=== PATIENT | female | born 1985 | race Asian ===

== ENCOUNTER → 2019-06-01 11:00 | Outpatient (CLI) | payer OTHER, MEDICAID, SELFPAY ==
[2019-06-01 12:24] LABS: Hemoglobin A1C% w Est Avg Glu 4.9 % (4.0-6.0)
[2019-06-01 12:34] LABS: Alanine Aminotransferase 13 IU/L (<35); Albumin 4.5 g/dL (3.5-5.0); Albumin Globulin Ratio 1.5 (1.0-2.8); Alkaline Phosphatase 47 U/L (38-126); Aspartate Aminotransferase 19 IU/L (14-36); Bilirubin Total 1.1 mg/dL (0.2-1.3); Blood Urea Nitrogen 14 mg/dL (7-17); Calcium 9.4 mg/dL (8.4-10.2); Carbon Dioxide 25 mmol/L (22-32); Chloride 106 mmol/L (98-107); Estimated Glomerular Filt Rate > 60.0 mL/min (>60); Globulin 3.1 g/dL (1.7-4.1); Glucose 103 mg/dL (70-100); HEMOLYSIS < 15 (0-50); Potassium 4.9 mmol/L (3.4-5.1); Sodium 140 mmol/L (137-145); Total Protein 7.6 g/dL (6.3-8.2)
== END ==
PROVIDERS: Visit Provider Family Medicine
DX: Z83.3 Family history of diabetes mellitus (principal)
CPT/HCPCS: 36415; 80053; 83036

== ENCOUNTER → 2020-05-07 11:09 | Outpatient (CLI) | payer OTHER, SELFPAY ==
--- NOTE | 2020-05-07 11:11 | DI.RAD.S_ITS ---
PROCEDURE: XR CHEST 2V INDICATIONS: Past history of positive PPD TECHNIQUE: 2 views of the chest were acquired. COMPARISON: [facility], , CHEST 2 VIEW, 04/02/2017, 10:28. FINDINGS: Surgical changes and devices: None. Lungs and pleura: Lungs are clear. No pleural effusions or pneumothorax. Mediastinum: Mediastinal contours are normal and unchanged. No adenopathy seen. Heart size is normal. Bones and chest wall: No suspicious bony abnormalities. Soft tissues appear unremarkable. IMPRESSION: No acute cardiopulmonary abnormality. Dictated by: Anjel Pan M.D. on 05/07/2020 at 11:56 Approved by: Anjel Pan M.D. on 05/07/2020 at 11:56
[2020-05-09 07:44] LABS: QuantiFERON Mitogen Value 8.05 IU/mL (.); QuantiFERON Nil Value 0.21 IU/mL (.); QuantiFERON TB Gold Plus Negative (Negative); QuantiFERON TB1 Ag Value 0.26 IU/mL (.); QuantiFERON TB2 Ag Value 0.27 IU/mL (.)
== END ==
PROVIDERS: PCP Family Medicine; Referring Provider Family Medicine; Visit Provider Family Medicine
DX: R76.11 Nonspecific reaction to tuberculin skin test without active tuberculosis (principal)
CPT/HCPCS: 36415; 71046; 86480

== ENCOUNTER → 2021-05-03 08:22 | Outpatient (CLI) | payer OTHER, SELFPAY ==
[2021-05-03 09:31] LABS: Add Manual Diff / Slide Review NO; Basophils Absolute Auto 100 /uL (0-100); Basophils Percent Auto 1.1 % (0-2); Eosinophils Absolute Auto 200 /uL (0-450); Eosinophils Percent Auto 2.3 % (2-4); Hematocrit 41.3 % (36-46); Hemoglobin 14.1 g/dL (12.0-16.0); Lymphocytes Absolute Auto 2700 /uL (1100-4500); Lymphocytes Percent Auto 36.4 % (25-40); Mean Corpuscular HGB Conc 34.2 % (30-36); Mean Corpuscular Hemoglobin 30.8 PG (26-34); Mean Corpuscular Volume 90.1 fL (80-100); Monocytes Absolute Auto 500 /uL (0-900); Monocytes Percent Auto 6.9 % (3-14); Neutrophils Absolute Auto 4000 /uL (1500-7000); Neutrophils Percent Auto 53.3 % (50-75); Platelet Count 271 X10^3/uL (150-400); Red Blood Cell Count 4.59 X10^6/uL (4.0-5.2); Red Cell Distribution Width 12.8 % (11.6-14.8); White Blood Cell Count 7.5 X10^3/uL (4.5-11.0)
[2021-05-03 10:05] LABS: Alanine Aminotransferase 17 IU/L (<35); Albumin 4.5 g/dL (3.5-5.0); Albumin Globulin Ratio 1.3 (1.0-2.8); Alkaline Phosphatase 38 U/L (38-126); Aspartate Aminotransferase 22 IU/L (14-36); BUN Creatinine Ratio 22.4 (6-22); Bilirubin Total 0.6 mg/dL (0.2-1.3); Blood Urea Nitrogen 19 mg/dL (7-17); Calcium 10.2 mg/dL (8.4-10.2); Carbon Dioxide 28 mmol/L (22-32); Chloride 103 mmol/L (98-107); Estimated Glomerular Filt Rate > 60.0 mL/min (>60); Globulin 3.5 g/dL (1.7-4.1); Glucose 104 mg/dL (70-100); HEMOLYSIS < 15 (0-50); Lipase 123 U/L (23-300); Potassium 4.4 mmol/L (3.4-5.1); Sodium 139 mmol/L (137-145)
[2021-05-06 16:52] LABS: Interpretation Positive (Negative)
== END ==
PROVIDERS: PCP Family Medicine; Referring Provider Registered Nurse; Visit Provider Registered Nurse
DX: R10.9 Unspecified abdominal pain (principal); R14.0 Abdominal distension (gaseous); K92.1 Melena
CPT/HCPCS: 36415; 80053; 83013; 83690; 85025

== ENCOUNTER → 2021-09-25 12:17 | Outpatient (CLI) | payer OTHER, SELFPAY | PROVIDERS: PCP Family Medicine; Visit Provider Nurse Practitioner | DX: N64.52 Nipple discharge (principal) | CPT/HCPCS: 87070; 87075; 87147; 87205 ==

== ENCOUNTER → 2022-06-05 14:13 | Outpatient (CLI) | payer OTHER, SELFPAY ==
[2022-06-05 16:14] LABS: COVID19 -Nasal RAPID Negative (Negative)
== END ==
PROVIDERS: PCP Family Medicine; Visit Provider Obstetrics & Gynecology
DX: Z01.812 Encounter for preprocedural laboratory examination (principal); Z20.822 Contact with and (suspected) exposure to COVID-19
CPT/HCPCS: 87635

== ENCOUNTER 2022-06-06 08:40 | Day surgery (SDC) | payer OTHER, SELFPAY ==
[2022-06-05 14:45] VITALS: BMI 31.9
[2022-06-06] VITALS (8 sets, daily range): BP systolic 103–144; BP diastolic 66–91; PULSE 72–116; RESP 10–20; TEMP 36.4–37; O2SAT 98–100; BMI 31.2
--- NOTE | 2022-06-06 | PATH_ITS ---
[facility] Accession Number: [id number] . 01 Material submitted: . body - LEEP CONE . 01 Clinical history: . LEEP CONE CUT AT 0900 . 01 Diagnosis: Uterine Cervix, LEEP Conization: High-grade squamous intraepithelial lesion (LAYLA-2/moderate dysplasia) in a background of low-grade squamous intraepithelial lesion and prior biopsy changes. Negative for glandular dysplasia and invasive carcinoma. Surgical margins: Negative for high-grade squamous intraepithelial lesion. MRV 06/10/2022 1306 Local . 01 Electronically signed: . Scar Cook MD, Pathologist NPI- [id number] . 01 Gross description: . The specimen is received in formalin, labeled with the patient's name, , and LEEP cone cut at 9 o'clock, and consists of a single linear fragment of cervix with a cut at 9 o'clock per the requisition and measuring 1.8 cm from 12 o'clock to 6 o'clock, 2.5 cm from 3 o'clock to 9 o'clock, and is excised to a depth of 0.4 cm. The cervical os is re-approximated to be slit-like and averages 0.4 cm in diameter. The ectocervix is rosario and finely granular. The endocervical margin is inked orange while the remaining stromal margins are inked blue. The specimen is radially sectioned and submitted entirely as follows: A1: 12-3 o'clock. A2: 3-6 o'clock. A3: 6-9 o'clock. A4: 9-12 o'clock. ([id number]) /[place] 06/10/2022 1306 Local . 01 Pathologist provided ICD-10: R87.613 . 01 CPT . 124644 Specimen Comment: A courtesy copy of this report has been sent to [phone] Performed at: 01 [facility] [address] [place] [address], [place], [place] [id number] MD Satya Renee MD Phone: [phone]
[2022-06-06] MEDS: LACTATED RINGERS 1,000 ML 42 ML IV (09:10)
--- NOTE | 2022-06-06 09:32 | P.HPOB_ITS ---
History of Present Illness History of Present Illness Narrative: Priscilla Piña is a 36 year old female admitted for LEEP due to HGSIL of the cervix noted on Pap and confirmed with colpo-directed biopsy 02/25/2022. [facility] Medical History (Updated 02/25/22 @ 13:22 by Alexandre Turner MD) Abdominal pain Bloating symptom Bloody stools Chlamydia (~2017) Family History Grandmother Cancer Social History household members: spouse and children Smoking Status: Former smoker alcohol intake: current Meds Home Medications and Allergies Home Medications Medication Instructions Recorded Confirmed Type No Known Home Medications 02/25/22 06/06/22 History Allergies Allergy/AdvReac Type Severity Reaction Status Date / Time No Known Drug Allergies Allergy Verified 06/06/22 08:49 Review of Systems Review of Systems Narrative: Problem-specific ROS positives included in HPI Exam Vital Signs (past 8 hours): - 06/06/22 09:07 Temperature 98.3 F Pulse Rate 116 H Respiratory Rate 20 Blood Pressure 144/91 H Pulse Oximetry 100 Oxygen Delivery Method Room Air Oxygen Delivery Method Room Air Const General: cooperative and comfortable Nutritional Appearance: average body habitus Orientation: alert and oriented x3 HENMT Head: normal to inspection, atraumatic and abrasion Ears: hearing grossly normal bilaterally Face and sinus: face symmetric Eyes General: appearance normal, both eyes and all related structures Conjunctivae: conjunctivae normal Sclera: sclerae normal EOM: EOM intact bilaterally Neck Neck: normal visual inspection Resp Effort & Inspection: normal respiratory effort and able to speak in complete sentences Auscultation: clear to auscultation bilaterally Cardio Rate: regular rate Rhythm: regular rhythm Heart Sounds: S1 normal, S2 normal and no murmurs GI Inspection: normal to inspection Palpation: soft, no hepatosplenomegaly and No tender External Female Exam: other (No significant bleeding noted) Extrem General: no calf tenderness Psych Appearance: grossly normal Mental Status: mental status grossly normal Speech and Movement: speech and movement normal Mood: congruent mood Affect: normal affect Attitude: cooperative Thought Process: normal Thought Content: normal Judgment: judgment good Assessment & Plan Assessment and plan (1) HGSIL (high grade squamous intraepithelial lesion) on Pap smear of cervix: Status: Acute Plan Patient counselled re: alternatives, risks, benefits and potential complications associated with LEEP. With full understanding of the above, a written consent was executed, signed, and witnessed this date. Time Spent With Patient Time with patient: less than 30 minutes Critical Care time: I spent a total of [] minutes of critical care time on this patient's care today; this time is exclusive of procedural time.
--- NOTE | 2022-06-06 09:36 | PM.PREOP ---
Pre-operative Note COVID-19 COVID-19 status: Negative Result date/Date tested (Pos, Neg/Pending): 06/05/22 Criteria for continued procedure: Non-surgical alternatives not available or appropriate per current SOC Interval Note History & Physical reviewed/Exam performed by Physician: Yes Changes to H&P: No
--- NOTE | 2022-06-06 09:51 | P.OP_ITS ---
Operative Date/Time/Diagnoses Date of procedure: 06/06/22 Time of procedure: 09:50 Pre-op diagnosis: High-grade squamous dysplasia of the uterine cervix Post-op diagnosis: same Procedure & Clinicians Procedure: Procedures Operation Date: 06/06/22 09:45 Loop electrosurgical excision procedure (LEEP) Indications: Priscilla Piña is a 36 year old female admitted for LEEP due to HGSIL of the cervix noted on Pap and confirmed with colpo-directed biopsy 02/25/2022. Surgeon: Alexandre Turner Anesthesia Type: General Operative Notes Closure Type: not applicable Specimen(s): other (LEEP Cone) Blood products transfused: none Procedure in detail: With the patient under satisfactory general anesthesia in the modified dorsal lithotomy position, the perineum and lower abdomen were prepped and draped in the usual manner for LEEP. A pre-surgical safety time-out was then taken in accordance with [facility] Main OR protocols. An insulated speculum was placed in the vagina and the cervix visualized. The cervix was immersed in vinegar solution and carefully inspected for areas of aceto-white epithelium. With a 10 mm x 15 mm loop electrode, 50 w pure cut, the entire transformation zone and aceto-white epithelium was removed. LEEP cone specimen cut at 9:00 was submitted in formalin pathologic evaluation. The LEEP cone bed was then rendered hemostatic with 60 w coag. At the end of the procedure the entire LEEP cone bed was completely hemostatic and the procedure was terminated by removal of the speculum from the vagina. Patient was then awakened from anesthesia and transferred to the PACU for of observation recovery after having tolerated procedure well. Complications: none Post-operative Condition: stable Disposition: PACU Plan for aftercare: Routine post-LEEP care.
[2022-06-06] MEDS: ACETIC ACID 500 ML IRRIG 20 ML TOP (10:00)
--- NOTE | 2022-06-06 10:10 | SUR.OPER ---
Lithotomy on padded OR bed, head on pillow, arms secured on padded arm boards at <90 degrees abduction. Legs secured in padded yellow fins stirrups.
== END 2022-06-06 11:14 | disposition home or self-care (01) ==
PROVIDERS: PCP Family Medicine; Referring Provider Obstetrics & Gynecology; Visit Provider Obstetrics & Gynecology
PROC: 0UBC7ZZ Excision of Cervix, Via Natural or Artificial Opening (ICD-10-PCS; CPT 57522; principal; 2022-06-06 09:45)
DX: R87.613 High grade squamous intraepithelial lesion on cytologic smear of cervix (HGSIL) (principal)
CPT/HCPCS: 57522; 81025; J1100; J1885; J2250; J2405; J2704; J3010

== ENCOUNTER → 2023-01-13 17:01 | Outpatient (CLI) | payer OTHER, SELFPAY ==
[2023-01-13 19:46] LABS: HCG Quantitative /Beta subunit 1625.2 mIU/mL
== END ==
PROVIDERS: PCP Family Medicine; Referring Provider Specialist; Visit Provider Specialist
DX: O20.0 Threatened abortion (principal)
CPT/HCPCS: 36415; 84702

== ENCOUNTER → 2023-01-16 09:24 | Outpatient (CLI) | payer OTHER, SELFPAY ==
[2023-01-16 11:00] LABS: HCG Quantitative /Beta subunit 33.5 mIU/mL
== END ==
PROVIDERS: PCP Family Medicine; Referring Provider Specialist; Visit Provider Specialist
DX: O20.0 Threatened abortion (principal); Z3A.00 Weeks of gestation of pregnancy not specified
CPT/HCPCS: 36415; 84702

== ENCOUNTER → 2023-05-07 14:54 | Outpatient (CLI) | payer OTHER, SELFPAY | PROVIDERS: PCP Family Medicine; Visit Provider Nurse Practitioner Family | DX: J02.9 Acute pharyngitis, unspecified (principal) | CPT/HCPCS: 87070; 87147 ==

== ENCOUNTER → 2023-07-03 09:04 | Outpatient (CLI) | payer OTHER, SELFPAY ==
[2023-07-03 10:50] LABS: Add Manual Diff / Slide Review NO; Basophils Absolute Auto 100 /uL (0-100); Basophils Percent Auto 0.9 % (0-2); Eosinophils Absolute Auto 100 /uL (0-450); Eosinophils Percent Auto 1.2 % (2-4); Hematocrit 38.8 % (36-46); Hemoglobin 13.2 g/dL (12.0-16.0); Lymphocytes Absolute Auto 2400 /uL (1100-4500); Lymphocytes Percent Auto 24.6 % (25-40); Mean Corpuscular HGB Conc 33.9 % (30-36); Mean Corpuscular Volume 88.6 fL (80-100); Monocytes Absolute Auto 400 /uL (0-900); Monocytes Percent Auto 4.7 % (3-14); Neutrophils Absolute Auto 6600 /uL (1500-7000); Neutrophils Percent Auto 68.6 % (50-75); Platelet Count 267 X10^3/uL (150-400); Red Blood Cell Count 4.38 X10^6/uL (4.0-5.2); Red Cell Distribution Width 12.6 % (11.6-14.8); White Blood Cell Count 9.6 X10^3/uL (4.5-11.0)
[2023-07-03 11:07] LABS: Alanine Aminotransferase 34 IU/L (<35); BUN Creatinine Ratio 17.3 (6-22); Blood Urea Nitrogen 9 mg/dL (7-17); Estimated Glomerular Filt Rate > 60 mL/min (>60); Uric Acid 3.7 mg/dL (2.5-6.2)
[2023-07-03 11:37] LABS: Hepatitis B Surface Antigen NEGATIVE s/c (NEGATIVE); Rubella Antibody IgG 31.6 IU/mL (>15)
[2023-07-03 11:48] LABS: HIV 1 & 2 Ab/Ag 4th Gen Combo NEGATIVE (NEGATIVE)
[2023-07-03 15:17] LABS: Aspartate Aminotransferase 28 IU/L (14-36)
[2023-07-03 18:16] LABS: Hep C Virus Ab w/Reflex Quant NEGATIVE s/c (NEGATIVE)
[2023-07-04 12:48] LABS: Varicella IgG Antibody 3328 index (Immune >165)
[2023-07-06 08:16] LABS: RPR Screen Non Reactive (Non Reactive)
== END ==
LOC: LAB 09:05
PROVIDERS: PCP Family Medicine; Referring Provider Student in an Organized Health Care Education/Training Program; Visit Provider Student in an Organized Health Care Education/Training Program
DX: Z34.80 Encounter for supervision of other normal pregnancy, unspecified trimester (principal); Z87.59 Personal history of other complications of pregnancy, childbirth and the puerperium
CPT/HCPCS: 36415; 80055; 82565; 83036; 84450; 84460; 84520; 84550; 86787; 86803; 86850; 86900; 86901; 87086; 87389

== ENCOUNTER → 2023-07-29 09:27 | Outpatient (CLI) | payer OTHER, SELFPAY ==
--- NOTE | 2023-07-29 10:31 | DIAB.GDA ---
Initial Gestational Nutrition Therapy Assessment Name: Priscilla Piña Date: 07/29/23 Time: [id number] Dx: Encounter for supervision of other normal , unspecified Provider: Cherie DESIRAE: 01/09/24 Weeks: 16 Priscilla presents today for initial nutrition visit. Reports she is quite worried about GDM diagnosis. Reports coming into this 20# heavier than last 6 years ago. Also, reports FH of T2DM with her mother. Today she would like to review nutrition recs, she is wondering if she needs to kcal count, and wants to know what her weight goals should be, more specifically if she can lose weight during this healthily. has questions about how she will know if she has high BG, ie testing and symptoms H/o keto diet. Hx with net carb counting. Works at a [employer]. Limited break time at work for lunch. Often eats out at lunch. Started pg at 193# lost weight (6#) with cutting out coffee and creamers during . Then regain back to 193#. Diet Recall: 845a: egg bites OR egg white sandwich OR ww thin bread with cottage cheese and eggs 1030a: nuts or apples 12p: subway flatbread chx carpenter OR French food with chx, white rice x 1c, and veg 630p: sausage and veg, 1c white rice OR tacos x 1-2 with 1/3c beans and 1/3c rice Ileana: Water Anthropometrics: Ht: 64 Wt: 193# today at OB Prepregnancy wt: 193# Physical Activity: No current program. Was walking 30 min x 3-4 x per week. Self-Monitoring Blood Glucose: None currently and not indicated. Diabetes Medications: none Pertinent Labs: hgA1c 5% 06/2023 Nutrition Rx: Carbohydrates: Daily: 175g Meal: 45-g lunch and dinner; 30-45g breakfast Snack: 15-30g Protein: min 71g/day Nutrition Diagnosis: Nutrition and food related knowledge deficit r/t no previous MNT for DM prevention aeb pt report Physical inactivity r/t stage of change preparation aeb pt report of willingness to restart activity Intervention: This participant was very receptive. Provided appropriate educational handouts. Discussed the following topics: GDM pathophysiology, risk factors, symptoms, screenings Ways to reduce risk GDM Plate Method, meal timing, carb counting, pairing macronutrients and spreading out CHO for best BG management Impact of macronutrients on blood glucose Recommended servings for carbohydrates and protein at meals and snacks for Brainstormed appropriate meal/snack recs based on her food preferences kcal counting vs plate method Eating out: carbs, sodium, kcals weight gain recs during based on prepreg wt. Discouraged purposeful weight loss during Role of physical activity and following provider guidelines for safety Goals: Restart 30 min walks 3-4 days per week Aim for at least 10 min activity after meal on other days Measure rice portion for reference Choose higher fiber options, ie brown rice Try to eat q 3-4 hours Follow-up: DANIELLA CID follow-up prn. Priscilla would like to follow-up prn. Encouraged her to contact me if she has further questions, concerns, or change in diagnosis regarding GDM. She agreed to this plan. Tiffanie Lal RDN, [facility] Certified Diabetes Care and Loss Prevention Guard T: [phone] F: [phone] [email or web address] Thank you for this referral
[2023-08-01 00:49] LABS: Gest Age on Col Date 16.6 weeks (.); Insulin Dep Diabetes No (.); OSBR Risk 1IN 2457 (.); Results Report (.); Test Results *Screen Negative* (.)
== END ==
PROVIDERS: PCP Family Medicine; Referring Provider Student in an Organized Health Care Education/Training Program; Visit Provider Student in an Organized Health Care Education/Training Program
DX: Z34.82 Encounter for supervision of other normal pregnancy, second trimester (principal); Z3A.16 16 weeks gestation of pregnancy
CPT/HCPCS: 36415; 82105; 97802

== ENCOUNTER → 2023-08-26 11:53 | Outpatient (CLI) | payer OTHER, SELFPAY ==
--- NOTE | 2023-08-26 11:54 | DI.US.S_ITS ---
PROCEDURE: US OB >= 14 WEEKS FETUS INDICATIONS: 20 week anatomy scan OUTSIDE/PRIOR DATING DATA: Last menstrual period (LMP): 04/03/2023. LMP-based estimated date of delivery (DESIRAE): 01/09/2024. First dating scan (date and location): 07/13/2023. Estimated date of delivery (DESIRAE) from first dating scan: 01/10/2024. The calculations are made using the clinical DESIRAE of 01/09/2024. TECHNIQUE: Real-time scanning was performed of the fetus, with image documentation and biometric measurements. COMPARISON: [facility], , OB <= 14 WEEKS FETUS, 07/03/2023, 8:50. FINDINGS: General: A single living intrauterine gestation is present. Presentation: Vertex. Placenta: Placental position is posterior , without previa. Amniotic fluid index: 13.7 cm, normal range is 5-24 cm. Single deepest vertical pocket is 4.6 cm. heart rate: 145 beats per minute. Maternal cervical canal: 4.7 cm long. Normal lower limit is 2.5 cm. biometrics: Biparietal diameter: 4.8 cm 20 weeks 4 days Head circumference: 18.6 cm 20 weeks 6 days Abdominal circumference: 15.4 cm 20 weeks 4 days Femur length: 3.4 cm 20 weeks 5 days Clinically estimated gestational age: 20 weeks 4 days Composite gestational age from present scan: 20 weeks 5 days Estimated weight and percentile: 368 g 50th percentile Anatomic survey: Neuro: Ventricles are non-dilated at less than 10 mm. Cisterna magna is normal at 3-11 mm. Cerebellum is normal in size and morphology. Nuchal skin fold: Normal at less than 6 mm between 14-21 weeks gestational age. Face: Nose and lips, facial profile are normal. Spine: No evidence for spina bifida. Heart: 4-chambered heart is present, with normal ventricular outflow tracts. Diaphragm: Diaphragm is intact. Stomach: Left-sided stomach is present. Kidneys: No hydronephrosis. Normal is less than 5 mm in 2nd trimester, less than 7 mm in 3rd trimester. Cord: 3-vessel cord has orthotopic insertion. Bladder: Normal in size. Extremities: All 4 extremities identified. IMPRESSION: Single live intrauterine with gestational age today of 20 weeks 5 days. Anatomy is within normal limits. We strive to produce accurate, complete, and clear reports of imaging services. To assist us in improving patient care, this report was composed using standard report templates and voice recognition software. Therefore, it may contain abnormal punctuation, insertions and/or omissions. Occasional wrong-word or sound-alike substitutions may occur. Though we review the report and make efforts to correct it, we do recommend that the report be read carefully in proper context to recognize any text inaccuracies. Dictated by: Paradise Lux M.D. on 08/26/2023 at 14:18 Approved by: Paradise Lux M.D. on 08/26/2023 at 14:19
== END ==
PROVIDERS: PCP Family Medicine; Referring Provider Student in an Organized Health Care Education/Training Program; Visit Provider Student in an Organized Health Care Education/Training Program
DX: Z34.82 Encounter for supervision of other normal pregnancy, second trimester (principal); Z3A.20 20 weeks gestation of pregnancy
CPT/HCPCS: 76811

== ENCOUNTER → 2023-10-14 14:16 | Outpatient (CLI) | payer OTHER, SELFPAY ==
[2023-10-14 15:59] LABS: Hemoglobin 12.2 g/dL (12.0-16.0)
[2023-10-14 16:27] LABS: GTT (PREG) 1 Hour PP 50gm Dose 128 mg/dL (76-139)
== END ==
PROVIDERS: PCP Family Medicine; Referring Provider Student in an Organized Health Care Education/Training Program; Visit Provider Student in an Organized Health Care Education/Training Program
DX: Z34.82 Encounter for supervision of other normal pregnancy, second trimester (principal)
CPT/HCPCS: 36415; 82950; 85014; 85018

== ENCOUNTER → 2023-11-02 15:49 | Outpatient (CLI) | payer OTHER, SELFPAY ==
--- NOTE | 2023-11-02 15:49 | DI.US.S_ITS ---
PROCEDURE: US OB <= 14 WEEKS FETUS INDICATIONS: dating and viability, irregular menses OUTSIDE/PRIOR DATING DATA: Last menstrual period (LMP): 04/03/2023. LMP-based estimated date of delivery (DESIRAE): 01/09/2024. First dating scan (date and location): 07/03/2023. Estimated date of delivery (DESIRAE) from first dating scan: 01/10/2024. The calculations are made using the clinical DESIRAE of 01/09/2024. TECHNIQUE: Real-time scanning was performed of the fetus, with image documentation and biometric measurements. Endovaginal scanning: Not performed COMPARISON: [facility], , OB <= 14 WEEKS FETUS, 07/03/2023, 8:50. FINDINGS: General: A single living intrauterine gestation is present. Presentation: Vertex. Placenta: Placental position is posterior , without previa. Amniotic fluid index: 10.5 cm, normal range is 5-24 cm. Single deepest vertical pocket is 3.4 cm. heart rate: 149 beats per minute. Maternal cervical canal: 4.6 cm long. Normal lower limit is 2.5 cm. biometrics: Biparietal diameter: 7.5 cm, 30 weeks 1 day Head circumference: 28 cm, 30 weeks 5 days Abdominal circumference: 27.1 cm, 31 weeks 2 days Femur length: 5.9 cm, 30 weeks 5 days Clinically estimated gestational age: 30 weeks 2 days Composite gestational age from present scan: 30 weeks 5 days Estimated weight and percentile: 1661 g, 59th percentile IMPRESSION: Single living intrauterine at 30 weeks 2 days, DESIRAE of 01/09/2024. Estimated weight of 1661 g, 59th percentile. We strive to produce accurate, complete, and clear reports of imaging services. To assist us in improving patient care, this report was composed using standard report templates and voice recognition software. Therefore, it may contain abnormal punctuation, insertions and/or omissions. Occasional wrong-word or sound-alike substitutions may occur. Though we review the report and make efforts to correct it, we do recommend that the report be read carefully in proper context to recognize any text inaccuracies. Dictated by: Quintin Gordon M.D. on 11/02/2023 at 16:46 Approved by: Quintin Gordon M.D. on 11/02/2023 at 16:48
== END ==
LOC: US 15:49
PROVIDERS: PCP Family Medicine; Referring Provider Student in an Organized Health Care Education/Training Program; Visit Provider Student in an Organized Health Care Education/Training Program
DX: Z34.80 Encounter for supervision of other normal pregnancy, unspecified trimester (principal); Z3A.30 30 weeks gestation of pregnancy
CPT/HCPCS: 76801

== ENCOUNTER → 2023-12-07 09:29 | Outpatient (CLI) | payer OTHER, SELFPAY ==
[2023-12-08 13:44] LABS: Strep Grp B PCR NEG for Grp B Strep
== END ==
PROVIDERS: PCP Family Medicine; Visit Provider Student in an Organized Health Care Education/Training Program
DX: Z34.83 Encounter for supervision of other normal pregnancy, third trimester (principal); Z3A.36 36 weeks gestation of pregnancy
CPT/HCPCS: 87653

== ENCOUNTER 2023-12-18 13:52 | Observation (INO) | payer OTHER, SELFPAY ==
[2023-12-18 14:31] LABS: Add Manual Diff / Slide Review NO; Basophils Absolute Auto 100 /uL (0-100); Basophils Percent Auto 0.9 % (0-2); Eosinophils Absolute Auto 200 /uL (0-450); Eosinophils Percent Auto 2.3 % (2-4); Hematocrit 35.6 % (36-46); Hemoglobin 12.3 g/dL (12.0-16.0); Lymphocytes Absolute Auto 2700 /uL (1100-4500); Lymphocytes Percent Auto 25.2 % (25-40); Mean Corpuscular HGB Conc 34.6 % (30-36); Mean Corpuscular Hemoglobin 31.1 PG (26-34); Monocytes Absolute Auto 1000 /uL (0-900); Monocytes Percent Auto 9.7 % (3-14); Neutrophils Absolute Auto 6700 /uL (1500-7000); Neutrophils Percent Auto 61.9 % (50-75); Platelet Count 242 X10^3/uL (150-400); Red Blood Cell Count 3.96 X10^6/uL (4.0-5.2); Red Cell Distribution Width 13.8 % (11.6-14.8); White Blood Cell Count 10.8 X10^3/uL (4.5-11.0)
[2023-12-18 14:42] LABS: Aspartate Aminotransferase 22 IU/L (14-36); BUN Creatinine Ratio 22.7 (6-22); Blood Urea Nitrogen 10 mg/dL (7-17); Estimated Glomerular Filt Rate > 60 mL/min (>60); Uric Acid 3.1 mg/dL (2.5-6.2); Uric Acid 3.2 mg/dL (2.5-6.2)
[2023-12-18 16:42] LABS: Creatinine Urine Random 48.46 mg/dL; Protein (Total) Urine Random 8 mg/dL (0-12); Protein Creatinine Ratio Urine 0.16 GRAM/24H
--- NOTE | 2023-12-18 17:44 | P.TNLD_ITS ---
Visit Information Visit Information Date of evaluation: 12/18/23 Primary OB Provider: Nata Crespo On-call OB Provider: Marie Kothari Reason for Evaluation: Yes non-stress test Comments/Additional reasons for admission: 38 yo with history of gestational hypertension in prior , obesity in , AMA who was sent from clinic at 36w6d due to outpatient blood pressure reading of 146/83 wtih her home cuff. She called in to triage and was counseled to come to labor and delivery. Patient's blood pressures have been within normal other than 1 OB appointment where blood pressure was 132/82 on December 06. She did have a mild headache this morning but this has since resolved without treatment. Otherwise no preeclampsia symptoms. No contractions. Vital Signs Vital Signs: Blood pressure on arrival 128/70, 119/56 HR- 126 --> 116 temp- 36.5C PFSH Medical History (Updated 11/17/23 @ 08:32 by Nata Crespo DO) Migraine without aura HGSIL (high grade squamous intraepithelial lesion) on Pap smear of cervix Discharge from nipple Bloating symptom Bloody stools Abdominal pain Vaginal delivery Chlamydia (~2016) Surgical History (Updated 06/25/23 @ 15:42 by Ashley Oro, GABBY) [place] teeth extracted H/O LEEP Family History (Updated 06/25/23 @ 15:45 by Ashley Oro, GABBY) Grandmother Cancer Breast cancer Mother Diabetes mellitus Hypertension Asthma Heart disease Father Prostatitis Social History marital status: number of children: 1 household members: spouse and children lives independently: Yes caregiver/support person: Yes housing: house pets and animals: Yes (1 dog) education level: college (some college) 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 status: employed (works in a [employer]) current 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 exposures/hazards: No special garrett needs: No travel history: over 6 months ago seatbelt use: always water heater temp set < 120 deg: Yes working smoke detector in home: Yes fire extinguisher in home: Yes carbon monox detector in home: Yes firearms in home: Yes firearms unloaded and locked: Yes do you feel safe at home: Yes Smoking Status: Former smoker (quit 2016 after ~8 years on and off) second hand exposure: No alcohol intake: former (0-5/week when not ) substance use type: does not use during the past year weight has: increased > 10 lbs well-balanced diet: daily or most days daily servings fruits/ve-4 caffeine: No (quit due to ) Type(s) of exercise: none and aerobic frequency: 3-4 times per week Review of Systems Review of Systems Narrative: - TOUSSAINT - scatoma/vision changes - RUQ pain - edema - Nausea/vomiting - Contractions Exam Narrative Exam Narrative: GEN: Healthy appearing, well-developed, NAD. PSYCH: Good Judgment. AOx3. Normal memory, mood, and affect HEENT: -Head: NC/AT -Eyes: No discharge or redness CV: warm and well perfused LUNGS: breathing comfortably on RA ABD: gravid SKIN: Warm, well perfused. No skin rashes or abnormal lesions MSK: Normal gait. No deformities NEURO: Ambulating with no limitations. No focal deficits Objective Labs 12/18/23 14:20 12/18/23 14:20 Labs: Laboratory Results - last 24 hr 12/18/23 12/18/23 12/18/23 14:20 14:20 15:30 WBC 10.8 RBC 3.96 L Hgb 12.3 Hct 35.6 L MCV 90.0 MCH 31.1 MCHC 34.6 RDW 13.8 Plt Count 242 Neut % (Auto) 61.9 Lymph % (Auto) 25.2 Edmonson % (Auto) 9.7 Eos % (Auto) 2.3 Baso % (Auto) 0.9 Neut # (Auto) 6700 Lymph # (Auto) 2700 Edmonson # (Auto) 1000 H Eos # (Auto) 200 Baso # (Auto) 100 BUN 10 Creatinine 0.44 L Estimated GFR > 60 BUN/Creatinine Ratio 22.7 H Uric Acid 3.1 3.2 AST 22 U Random Total Protein 8 Urine Creatinine 48.46 Protein/Creatinin Ratio 0.16 Evaluation Evaluation Baseline heart rate: 150 Variability: Moderate (11-25) monitor accelerations: Present Monitor Decelerations: Absent Contraction Frequency (minutes): 0 Category of Tracing: Reactive Status: Category l Diagnosis, Plan/Disposition Plan/Disposition Plan: 38 yo with history of gestational hypertension in prior , obesity in , AMA who was sent from clinic at 36w6d due to outpatient blood pressure reading of 146/83 with her home cuff (automatic arm cuff). CBC shows normal platelets, creatinine of 0.44, AST 22, urine protein creatinine of 016. Blood pressure is while on labor and delivery all within normal limits. Headache has resolved without treatment. Feel tracing category 1 and reassuring. No contractions noted on toco. Patient has follow-up scheduled early next week with her primary OB. Recommend continuing with follow-up. Reviewed preeclampsia symptoms and what to do if they arise. If any arise, recommend proceeding to L and D for evaluation and monitoring. In the meantime continue to trend blood pressures home. Recommend bringing blood pressure cuff to her next visit as to be able to calibrate with clinic cuff. OB Disposition: home
== END 2023-12-18 17:30 | disposition home or self-care (01) ==
LOC: LABOR 13:53
PROVIDERS: Obstetrics & Gynecology; Admitting Provider Student in an Organized Health Care Education/Training Program; PCP Family Medicine; Referring Provider Student in an Organized Health Care Education/Training Program; Visit Provider Student in an Organized Health Care Education/Training Program
DX: O16.3 Unspecified maternal hypertension, third trimester (principal); O09.523 Supervision of elderly multigravida, third trimester; Z3A.36 36 weeks gestation of pregnancy
CPT/HCPCS: 59025; 59050; 82570; 84156; 84450; 84550; 85025; G0378; G0379

== ENCOUNTER 2024-01-04 13:47 | Outpatient (CLI) | payer OTHER, SELFPAY ==
--- NOTE | 2024-01-04 14:31 | P.TNLD_ITS ---
Visit Information Visit Information Date of evaluation: 01/04/24 Primary OB Provider: Nata Crespo Reason for Evaluation: Yes non-stress test Vital Signs Vital Signs: BP 137/90, repeat 112/59 PFS Medical History (Updated 11/17/23 @ 08:32 by Nata Crespo DO) Migraine without aura HGSIL (high grade squamous intraepithelial lesion) on Pap smear of cervix Discharge from nipple Bloating symptom Bloody stools Abdominal pain Vaginal delivery Chlamydia (~2017) Surgical History (Updated 06/25/23 @ 15:42 by Ashley Oro RN) [place] teeth extracted H/O LEEP Family History (Updated 06/25/23 @ 15:45 by Ashley Oro RN) Grandmother Cancer Breast cancer Mother Diabetes mellitus Hypertension Asthma Heart disease Father Prostatitis Social History marital status: number of children: 1 household members: spouse and children lives independently: Yes caregiver/support person: Yes housing: house pets and animals: Yes (1 dog) education level: college (some college) 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 status: employed (works in a [employer]) current 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 exposures/hazards: No special garrett needs: No travel history: over 6 months ago seatbelt use: always water heater temp set < 120 deg: Yes working smoke detector in home: Yes fire extinguisher in home: Yes carbon monox detector in home: Yes firearms in home: Yes firearms unloaded and locked: Yes do you feel safe at home: Yes Smoking Status: Former smoker (quit 2016 after ~8 years on and off) second hand exposure: No alcohol intake: former (0-5/week when not ) substance use type: does not use during the past year weight has: increased > 10 lbs well-balanced diet: daily or most days daily servings fruits/ve-4 caffeine: No (quit due to ) Type(s) of exercise: none and aerobic frequency: 3-4 times per week Evaluation Evaluation Baseline heart rate: 150 Variability: Moderate (11-25) monitor accelerations: Present Monitor Decelerations: Absent Category of Tracing: Reactive Diagnosis, Plan/Disposition Final Diagnosis (1) History of induced hypertension: Status: Acute Plan/Disposition Plan: 38yo at 39+2wks presenting for NST/BP check due to delay of IOL and hx of HTN in prior . At this point, pt has not met criteria for gHTN in this , with all documented blood pressures within normal range except for her first BP today in triage. She denied any pre-e symptoms to nursing staff today. Reactive NST noted on external monitoring today. -due to lack of sufficient staffing, her IOL has been delayed from today until later this week -pt aware of pre-e symptoms and reasons to return to care sooner -will hopefully get pt in for IOL later this week, or sooner if she rules in for gHTN or pre-e OB Disposition: home
== END 2024-01-04 14:38 | disposition home or self-care (01) ==
LOC: LABOR 14:14 → OB 01-07 12:17
PROVIDERS: PCP Family Medicine; Referring Provider Student in an Organized Health Care Education/Training Program; Visit Provider Student in an Organized Health Care Education/Training Program
DX: O26.893 Other specified pregnancy related conditions, third trimester (principal); Z87.59 Personal history of other complications of pregnancy, childbirth and the puerperium; Z3A.39 39 weeks gestation of pregnancy
CPT/HCPCS: 59025; G0378; G0379

== ENCOUNTER 2024-01-05 16:41 | Inpatient (IN) | payer OTHER, SELFPAY ==
[2024-01-05] MEDS: miSOPROStoL 25 MCG TABLET VAG ×2 (17:11→22:09)
--- NOTE | 2024-01-05 17:20 | PM.OBHP.1 ---
OB HPI Date/Time Date of admission: 01/05/24 Date Patient Seen: 01/05/24 Time Patient Seen: 17:20 History of Present Condition Chief complaint: observation of labor : 3 Para: 1 Estimated Date of Delivery: 01/09/24 Estimated Gestational Age (weeks): 39+3 Narrative: Priscilla Piña is a 38 year old female Comments: admitted for 39wk induction of labor. Denies regular contractions, leaking fluid, vaginal bleeding, or decreased movement. History of Present care: good care Dating criteria: LMP confirmed by 1st trimester US Ultrasounds: normal mid trimester US Narrative: Ultrasound Ultrasound Details:: Dating sono 07/03/22: pinon IUP with CRL 6.7cm (13+0wks); + FCA; normal appearing uterus, cervix, and bilateral ovaries Anatomy sono 08/26/23: normal anatomy, posterior placenta, EFW 50%ile Follow-up growth 11/02/23: EFW 59%ile Specific Issues/Plans Hx gHTN vs. pre-e w/o SF in G1 (induced at 39wks)--> [x ] ASA Excessive weight gain (+48lbs) Size > dates at 29wks--> [x ] growth US- 59%ile Obesity (pre-preg BMI 32)--> [ x] early hgb A1c 5.0 AMA--> [x ] cfDNA- low risk XY; [ x] MSAFP- neg ~1 year s/p LEEP, due for repeat pap--> cotest NILM/HPV neg Jamie Assigned to [facility] Preadmission Labs Blood type: A (+) positive -: Antibody screen: negative, Cystic fibrosis screen: unknown, GBS status: negative, HBsAG: negative, HIV: negative, HSV 1: unknown, HSV 2: unknown and RPR/VDLR: negative -: Chlamydia screen: not detected and Gonorrhea screen: not detected -: Rubella: immune and Varicella: immune HCT: 35.6 HCAB: negative PAP: Normal Cell-free DNA: low risk XY 1 hr GTT: 128 Evaluation Evaluation Baseline heart rate: 145 Variability: Moderate (11-25) monitor accelerations: Present Monitor Decelerations: Absent Contraction Frequency (minutes): 0 Status: Category l Dilation (cm): 1 Effacement (%): 0 station: -3 Position of cervix: posterior Consistency: soft PFSH Medical History (Updated 11/17/23 @ 08:32 by Nata Crespo DO) Migraine without aura HGSIL (high grade squamous intraepithelial lesion) on Pap smear of cervix Discharge from nipple Bloating symptom Bloody stools Abdominal pain Vaginal delivery Chlamydia (~2017) Surgical History (Updated 06/25/23 @ 15:42 by Ashley Oro, RN) [place] teeth extracted H/O LEEP Family History (Updated 06/25/23 @ 15:45 by Ashley Oro, GABBY) Grandmother Cancer Breast cancer Mother Diabetes mellitus Hypertension Asthma Heart disease Father Prostatitis Social History marital status: number of children: 1 household members: spouse and children lives independently: Yes caregiver/support person: Yes housing: house pets and animals: Yes (1 dog) education level: college (some college) 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 status: employed (works in a [employer]) current 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 exposures/hazards: No special garrett needs: No travel history: over 6 months ago seatbelt use: always water heater temp set < 120 deg: Yes working smoke detector in home: Yes fire extinguisher in home: Yes carbon monox detector in home: Yes firearms in home: Yes firearms unloaded and locked: Yes do you feel safe at home: Yes Smoking Status: Former smoker (quit 2016 after ~8 years on and off) second hand exposure: No alcohol intake: former (0-5/week when not ) substance use type: does not use during the past year weight has: increased > 10 lbs well-balanced diet: daily or most days daily servings fruits/ve-4 caffeine: No (quit due to ) Type(s) of exercise: none and aerobic frequency: 3-4 times per week Meds Home Medications and Allergies Home Medications Medication Instructions Recorded Confirmed Type calcium carbonate 600 mg-vitamin cap PO 06/25/23 12/28/23 History D3 10 mcg (400 unit) capsule mecobalamin (vitamin B12) 2,500 mcg PO 06/25/23 12/28/23 History mcg chewable tablet omega 1-oyi-rvn-fish oil 1,000 mg 1 cap PO DAILY 06/25/23 12/28/23 History (120 mg-180 mg) capsule (Fish Oil) vitamin-ferrous sulfate tab PO 06/25/23 12/28/23 History 27 mg iron-folic acid 0.8 mg tablet Allergies Allergy/AdvReac Type Severity Reaction Status Date / Time No Known Drug Allergies Allergy Verified 12/28/23 08:14 Review of Systems Review of Systems ROS: Yes All systems reviewed with the patient and are negative except as otherwise documented OB Exam Vital signs Blood Pressure: 130/74 Pulse Rate: 103 Temperature: 97.3 F HENMT Head: normal to inspection Resp Effort & Inspection: normal respiratory effort and able to speak in complete sentences Cardio Rate: regular rate Rhythm: regular rhythm Extremities Lower extremity: Yes normal to inspection GI Other: gravid, nontender, nondistended Other: EFW 3900g Assessment and Plan Assessment and Plan Assessment and Plan narrative: 38yo at 39+3wks admitted for elective induction of labor. -CBC, T&S on admission -continuous EFM -epidural PRN -GBS neg, ppx not indicated -PPH risk low -VTE risk low, SCDs with epidural -anticipate L&D Counseling: Common procedures and interventions related to the management of were explained to the patient, including assistance at vaginal delivery with episiotomy, vacuum, or forceps, use of medications to stop premature labor or induce labor, and assessment including auscultation (listening to the heart), use of electronic monitoring (external and / or internal), and use of scalp electrode and/or intrauterine pressure catheter.? It was also explained that approximately 20-30% of mothers have a need for delivery during their labor course. It was explained to the patient that , labor and delivery are ordinarily normal physiological events and can be expected to provide a healthy outcome for mother and baby in the majority of cases. However, there are complications that may arise during , labor, and delivery, such as: hemorrhage requiring administration of blood and/or blood products, surgical intervention, possibly even hysterectomy for life-saving purposes; possibility of infection requiring antibiotics, prolonged hospital stay, and rarely surgical intervention; possibility of blood clots;? possibility of retained products of conception requiring surgical intervention;? possibility of serious tears or injury to the vagina, cervix, perineum, or rectum;? possibility of injury to abdominal structures if delivery is required;? and rarely maternal or may occur. Time-Based Coding :: [30min] spent with patient and on the chart (including review of chart, obtaining history, exam, reviewing outside data, placing orders, documenting exam and treatment plan, and counseling patient) on [01/05/24].
[2024-01-05 17:31] VITALS: BP 130/74; PULSE 103; TEMP 36.3
[2024-01-05 18:08] VITALS: BP 130/74
[2024-01-05 18:08] LABS: Add Manual Diff / Slide Review NO; Basophils Absolute Auto 100 /uL (0-100); Basophils Percent Auto 0.8 % (0-2); Eosinophils Absolute Auto 200 /uL (0-450); Hematocrit 37.4 % (36-46); Hemoglobin 12.9 g/dL (12.0-16.0); Lymphocytes Absolute Auto 2800 /uL (1100-4500); Lymphocytes Percent Auto 27.3 % (25-40); Mean Corpuscular HGB Conc 34.5 % (30-36); Monocytes Absolute Auto 1100 /uL (0-900); Monocytes Percent Auto 10.9 % (3-14); Neutrophils Absolute Auto 6000 /uL (1500-7000); Platelet Count 219 X10^3/uL (150-400); Red Blood Cell Count 4.15 X10^6/uL (4.0-5.2); Red Cell Distribution Width 13.8 % (11.6-14.8); White Blood Cell Count 10.1 X10^3/uL (4.5-11.0)
[2024-01-06] MEDS: LACTATED RINGERS 1,000 ML 100 ML IV ×2 (05:18→09:53)
[2024-01-06] MEDS: OXYTOCIN PREMIX 30 UNIT/500 ML PLAST..BAG IV (05:18)
--- NOTE | 2024-01-06 08:30 | PM.OBPNLAB ---
Date/Time Date Patient Seen: 01/06/24 Time Patient Seen: 07:30 Pain Control Pain control: tolerating well Comments: pt requests epidural Pelvic Exam Effacement (%): 0 station: -3 Comments: /-3 per overnight RN exam Contractions Contractions on admission: regular Monitor mode: External Pitocin rate (mU/min): 8 Contraction frequency (min): 3 Contraction pattern: Regular Contraction intensity: Moderate Status status: Category l Heart Rate Baseline: 145 Monitor Accelerations: Present Monitor Decelerations: Absent Monitor Variability: Moderate Assessment and Plan Assessment: induction ongoing Plan: continuous present management Comments: plan for interval provider SVE pending adequate analgesia with epidural anticipate vaginal delivery
[2024-01-06] MEDS: FENT 2MCG/ML BUPIV 0.125% EPI 200 MCG/100 ML PLAST..BAG 6 MCG EPIDURAL ×2 (09:00→15:30)
--- NOTE | 2024-01-06 09:09 | P.PCN_ITS ---
[facility] <Marlin Oconnor CRNA - Last Filed: 01/06/24 10:03> Pre-procedure Procedure: Continuous Lumbar Epidural for L&D Attending OB provider: Nata Crespo PMH/ROS narrative: at approx 39+3 with PMH obesity, seasonal allergies, and heartburn with requesting DANILE. PSH/Anesthesia history narrative: See pre-anesthesia eval. Exam narrative: See pre-anesthesia eval. ASA Class: III Labs: Hct 37.4 % (36-46) 01/05/24 17:40 Plt Count 219 X10^3/uL (150-400) 01/05/24 17:40 Medications: Current Medications Generic Name Dose Route Start Last Admin Trade Name Freq PRN Reason Stop Dose Admin Acetaminophen 650 mg 01/05/24 16:49 Acetaminophen 325 Mg Tablet PO Q4HR PRN Fever/Mild Pain (1-3) Calcium Carbonate 1,000 mg 01/05/24 23:00 Calcium Carbonate 500 Mg Tab PO Q4HR PRN Dyspepsia Carboprost Tromethamine 250 mcg 01/05/24 23:00 Carboprost 250 Mcg/Ml Ampul IM Q90M PRN Bleeding Diphenhydramine HCl 25 mg 01/06/24 08:59 Diphenhydramine 50 Mg/Ml Vial IV 01/07/24 09:00 Q3HR PRN PRURITUS Fentanyl 50 mcg 01/05/24 23:00 Fentanyl 100 Mcg/2 Ml Inj IV Q1H PRN Pain, Moderate (4-6) Lactated Ringer's 1,000 mls @ 100 mls/hr 01/05/24 17:00 01/06/24 05:18 Lactated Ringers IV 100 mls/hr CONT KATALINA Administration Lactated Ringer's 1,000 mls @ 100 mls/hr 01/05/24 23:00 Lactated Ringers IV CONT KATALINA Oxytocin/Lactated Ringer's 30 unit in 500 mls @ 200 mls/hr 01/05/24 23:00 Oxytocin Premix IV CONT PRN Bleeding Protocol Tranexamic Acid 1,000 mg/ 100 mls @ 600 mls/hr 01/05/24 23:00 Sodium Chloride IV NOW PRN Bleeding Oxytocin/Lactated Ringer's 30 unit in 500 mls @ 2 mls/hr 01/06/24 05:15 01/06/24 05:18 Oxytocin Premix IV 2 milliunit/min TITRATE KATALINA 2 mls/hr Administration Protocol 2 MILLIUNIT/MIN Sodium Chloride 1,000 mls @ 100 mls/hr 01/06/24 09:00 Normal Saline 0.9% IV 01/07/24 09:00 CONT KATALINA Lidocaine HCl 20 ml 01/05/24 23:00 Lidocaine 1% 20 Ml INJ INTRA-OP PRN Post Delivery Methylergonovine Maleate 0.2 mg 01/05/24 23:00 Methylergonovine 0.2 Mg Tablet PO Q6HR PRN Heavy Bleeding Methylergonovine Maleate 0.2 mg 01/05/24 23:00 Methylergonovine 0.2 Mg/Ml Vial IM NOW PRN Bleeding Misoprostol 25 mcg 01/05/24 17:00 01/05/24 22:09 Misoprostol 25 Mcg Tablet VAG 25 mcg Q4H [facility] Administration Misoprostol 800 mcg 01/05/24 23:00 Misoprostol 200 Mcg Tablet KY NOW PRN Bleeding Misoprostol 400 mcg 01/05/24 23:00 Misoprostol 200 Mcg Tablet SL NOW PRN Bleeding Naloxone HCl 0.2 mg 01/05/24 23:00 Naloxone 0.4 Mg/Ml Vial IV Q2MIN PRN Opiate Reversal Naloxone HCl 0.4 mg 01/06/24 08:59 Naloxone 0.4 Mg/Ml Vial IV Q2MIN PRN Opiate Reversal Naloxone HCl 0.1 mg 01/06/24 08:59 Naloxone 0.4 Mg/Ml Vial IV 01/06/24 09:00 NOW ONE Naloxone HCl 0.1 mg 01/06/24 08:59 Naloxone 0.4 Mg/Ml Vial IV 01/06/24 09:00 NOW ONE Ondansetron HCl 4 mg 01/05/24 23:00 Ondansetron 4 Mg/2 Ml Inj IV Q4HR PRN Nausea And Vomiting Ondansetron HCl 4 mg 01/06/24 09:00 Ondansetron 4 Mg/2 Ml Inj IV 01/06/24 13:01 Q4HR [facility] Oxytocin 10 unit 01/05/24 23:00 Oxytocin 10 Unit/Ml Vial IM NOW PRN Bleeding Allergies: Allergies Allergy/AdvReac Type Severity Reaction Status Date / Time No Known Drug Allergies Allergy Verified 12/28/23 08:14 Procedure Insertion date: 01/06/24 Insertion time: 08:43 Prep/Local: 1% lidocaine (3mL and chlorhexadine for skin prep) Interspace: L2/L3 Patient position: sitting Needle: 18 gauge Hustead Loss of resistance with: saline MICHAEL at (cm): 7 Catheter placed at SKIN (cm): 12 Catheter in SPACE (cm): 5 Insertion: No CSF, Yes Blood, No Paresthesia with insertion, No Paresthesia with injection and No Test dose reaction Initial Medications TEST DOSE time: :44 TEST DOSE: 1.5% lidocaine with epinephrine 1:200k (mL): 3 BOLUS DOSE time: 08:48 BOLUS DOSE (mL): 10 BOLUS DOSE med: 0.25% bupivacaine (given in two divided doses over 5 minutes apart) Infusion INFUSION: 0.125% bupivacaine and with fentanyl 2 mcg/mL Initial rate (mL/hr): 6 Subsequent interventions: Initial epidural was attempted at L/3 L/4 level. Clear MICHAEL with saline at 7.5cm, however once epidural catheter was threaded bright abby blood return backfilled catheter tubing. Aspiration on the catheter prior to test dose returned 1mL of bright abby blood which did not cease when pulling back catheter 1cm. Thus, test dose was not administered for concern of vascular uptake. Catheter was removed and subsequent epidural was placed one level higher without blood return or other complication. 0900- Responded for hypotension to low 90s, no nausea or other concerns. Pt has just finished her first liter bolus. Currently comfortable feeling no pain with contractions. Feeling some pelvic pressure. Two doses of ephedrine given with good effect and BP return back to 110's systolic. Advised Hope, RN may turn off epidural and/or give additional 500mL bolus if BP continues to dip 20% below baseline and pt is comfortable. Post-procedure Anesthesia date START: 01/06/24 Anesthesia time START: 08:16 <Jaden Nunez MD - Last Filed: 01/06/24 16:58> Infusion Subsequent interventions: Initial epidural was attempted at L/3 L/4 level. Clear MICHAEL with saline at 7.5cm, however once epidural catheter was threaded bright abby blood return backfilled catheter tubing. Aspiration on the catheter prior to test dose returned 1mL of bright abby blood which did not cease when pulling back catheter 1cm. Thus, test dose was not administered for concern of vascular uptake. Catheter was removed and subsequent epidural was placed one level higher without blood return or other complication. 0900- Responded for hypotension to low 90s, no nausea or other concerns. Pt has just finished her first liter bolus. Currently comfortable feeling no pain with contractions. Feeling some pelvic pressure. Two doses of ephedrine given with good effect and BP return back to 110's systolic. Advised Hope, RN may turn off epidural and/or give additional 500mL bolus if BP continues to dip 20% below baseline and pt is comfortable. Top up bolus given at [address] Hopper, 10ml 2% lidocaine. Infusion increased to 10ml/hr (ss) Post-procedure Anesthesia date END: 01/06/24 Anesthesia time END: 16:38 Post-procedure Anesthesia Assessment: Yes CV function: HR/BP stable, Yes Resp function: RR/sat/airway adequate, Yes Post-op hydration adequate, Yes Pain control adequate, Yes Nausea & vomiting absent, Yes Temperature > 36 C, Yes Mental status appropriate and No Anesthesia complications
--- NOTE | 2024-01-06 09:32 | PM.OBPNLAB ---
Date/Time Date Patient Seen: 01/06/24 Time Patient Seen: 09:32 Pain Control Pain control: epidural Pelvic Exam Dilation (cm): 4 Effacement (%): 50 station: -3 Amniotic membrane status: Intact Comments: head non-engaged Contractions Contractions on admission: regular Monitor mode: External Pitocin rate (mU/min): 8 Contraction frequency (min): 3 Contraction pattern: Regular Contraction intensity: Moderate Status status: Category ll Heart Rate Baseline: 150 Monitor Accelerations: Present Monitor Decelerations: Episodic and Late Monitor Variability: Moderate Comments: intermittent late decelerations in setting of relative maternal hypotension following epidural, adequate interval variability without change in baseline Assessment and Plan Assessment: induction ongoing Plan: continuous present management Comments: cat 2 tracing following epidural secondary to maternal hypotension with neuraxial analgesia noted tight band of scar on SVE consistent with LEEP, may necessitate digtal disruption as labor progresses head non-engaged, continue position changes/peanut ball to assist with descent continue CEFM/toco, notify provider immediate if routine intrauterine resuscitation inadequate
[2024-01-06] MEDS: MINERAL OIL 30 ML UDC PO (16:30)
[2024-01-06] MEDS: METHYLERGONOVINE 0.2 MG/ML VIAL IM (16:55)
--- NOTE | 2024-01-06 17:15 | PM.OBPRVD ---
Events: Other (AMA, excessive maternal weight gain, h/o prior LEEP) Labor & Delivery Delivery date: 01/06/24 Cervical ripening method: per Cervidil protocol Induction method: per pitocin protocol Delivery monitor: external FHT Route of delivery: Episiotomy description: None L&D Laceration Description: Perineal - 1st Degree Delivery repair: vicryl Estimated blood loss (mL): 350 Anesthesia Type: Epidural Complications: shoulder dystocia of approximately 60 seconds, resolved with McRobert's and woodscrew maneuver Narrative: Notified per RN of SVE C/C/+2 with strong urge to push. Gomes catheter discontinued and pt placed in lithotomy position. Excellent maternal expulsive efforts with descent of head to +4 at which time turtle sign was appreciated and announced to bedside RN and a stool was placed at bedside. Delivery of head in straight OA with assistance of Ritgen's maneuver. Shoulder dystocia immediately identified and patient was instructed to stop expulsive efforts. McRobert's performed in tandem with woodscrew maneuver after which anterior shoulder delivered spontaneously. The posterior shoulder delivered spontaneously and LUE was splinted and delivered. With delivered to the level of the scapula maternal expulsive efforts resumed with delivery of body. placed on maternal abdomen and vigorously stimulated. Delayed cord clamping x30s, clamped x2 and cut by father of the baby. 3VC noted. Cord blood obtained. Spontaneous delivery of placenta <10min with subsequent brisk increase in bleeding that resolved with increase in rate of pitocin and administration of methergine. Perineal exam revealed a first degree perineal laceration that was repaired with 3-0 vicryl in a single figure of eight. Uterus was palpated again and noted to be firm, lochia minimal. [place] Baby 1: gender: Male Presentation: vertex Position: Right Occiput Anterior Placenta delivery description: Spontaneous Cord Vessel Description: 3 Vessels score (1 min): 7 score (5 min): 9 Plan for aftercare: Routine care
[2024-01-06] MEDS: IBUPROFEN 600 MG TABLET PO (17:40)
[2024-01-06] MEDS: ACETAMINOPHEN 325 MG TABLET 650 MG PO (17:40)
[2024-01-06 19:13] VITALS: PULSE 152; RESP 55
[2024-01-07] MEDS: IBUPROFEN 600 MG TABLET PO ×3 (00:39→14:24)
[2024-01-07 06:10] LABS: Hematocrit 35.4 % (36-46); Hemoglobin 11.8 g/dL (12.0-16.0)
[2024-01-07] MEDS: ACETAMINOPHEN 325 MG TABLET 650 MG PO (07:17)
--- NOTE | 2024-01-07 08:02 | PM.OBDS.1 ---
Discharge Providers Provider Date of admission: 01/05/24 16:41 Discharge Date: 01/07/24 Primary care physician: Lemuel Dennison DO Consults: 01/05/24 23:00 Consult to Anesthesiology Urgent Comment: Consulting Provider: Anesthesiologist Reason for consultation: Epidural 01/07/24 17:14 Consult to Quality Engineering Manager Routine Comment: Discharge provider: Nata Crespo DO Summary Hospital Course Date Patient Seen: 01/07/24 Time Patient Seen: 08:02 Diagnoses: Term gestation at 39+4wks macrosomia Shoulder dystocia Obesity Advanced maternal age Hospital Course: 38yo [id number] admitted at 39+3wks for induction of labor. She progressed to a vaginal delivery that was complicated by a 60sec shoulder dystocia. Her course was unremarkable. On day #1, she was ambulating, tolerating regular diet, voiding spontaneously with minimal lochia. Her pain was well controlled with oral medications, thus she was discharged to home on day #1. Peripartum Data Infant Delivery Method: Natural Vaginal Laceration Description: Perineal - 1st Degree Procedures: External monitoring Induction of labor Epidural anesthesia Spontaneous vaginal delivery Perineal laceration repair complications: none Discharge Diagnosis (1) Shoulder dystocia during labor and delivery, delivered: Status: Acute (2) Vaginal delivery: Status: Acute (3) macrosomia: Status: Acute (4) Obesity affecting : Status: Acute (5) Advanced maternal age (AMA) in : Status: Acute Status at Discharge Cognitive/behavioral status at discharge: oriented Functional status at discharge: independent ambulation Overall status at discharge: patient is progressing back to baseline Time Spent with Patient Time attestation: Total time spent providing and/or coordinating discharge services: Time spent: Less than 30 minutes Objective Labs 01/07/24 05:45 Labs: Laboratory Results - last 24 hr 01/07/24 05:45 Hgb 11.8 L Hct 35.4 L Exam Vital Signs (past 8 hours): vitals reviewed in OBIX, within normal parameters Const General: cooperative, healthy appearing, comfortable and No acute distress Resp Effort & Inspection: normal respiratory effort GI Inspection: normal to inspection Other: fundus firm and nontender at U-2 Skin General: no rashes or lesions noted Neuro General: patient alert and patient awake Extrem General: normal to inspection, no pedal edema and no calf tenderness Psych Mood: congruent mood Affect: normal affect Discharge Plan Discharge Plan Patient Disposition: Home Provider Discharge Comment: Take ibuprofen 600mg every 6hrs and acetaminophen 650mg every 6hrs as needed for cramping. Avoid placing anything in the vagina for 6 weeks. Discharge orders & Medications Prescriptions: Continued vit-ferrous sulfat-FA 27 mg iron- 0.8 mg tablet PO Follow up/Referrals: Nata Crespo DO [Physician] - Diet/Activity/Treatments Diet: Diet as Tolerated Activity: As tolerted. Skin/Wound/Dressing Care Report to your healthcare provider any signs of infection, such as:: chills, fever, increased pain, unusual drainage and unusual redness Visit Report/Discharge Packet Instructions: DI for Labor and Delivery, Vaginal Stand Alone Forms: Patient Portal/API, Stroke Signs & Symptoms Discharge Data Primary Care Provider: Lemuel Dennison
[2024-01-07] MEDS: PRENATAL VIT,CALC/IRON/FOLIC 1 TABLET 1 TAB PO (09:27)
[2024-01-07] MEDS: DOCUSATE 100 MG CAPSULE PO (09:28)
[2024-01-07] MEDS: LANOLIN OINT 7 GM 1 APPLIC TOP (09:28)
[2024-01-07 12:12] VITALS: BP 112/62; PULSE 83; RESP 16; TEMP 36.2
[2024-01-07] MEDS: DERMOPLAST SPRAY 20% 60 ML 1 SPRAY TOP (14:24)
== END 2024-01-07 15:10 | disposition home or self-care (01) | DRG 807 ==
PROVIDERS: Obstetrics & Gynecology; Admitting Provider Student in an Organized Health Care Education/Training Program; PCP Family Medicine; Referring Provider Student in an Organized Health Care Education/Training Program; Visit Provider Student in an Organized Health Care Education/Training Program
DX: O76 Abnormality in fetal heart rate and rhythm complicating labor and delivery (principal); Z37.0 Single live birth; O70.0 First degree perineal laceration during delivery; Z3A.39 39 weeks gestation of pregnancy
CPT/HCPCS: 36415; 59050; 59200; 85014; 85018; 85025; 86850; 86900; 86901; A9270; G0379; J2210; J2590

== ENCOUNTER 2025-03-31 16:33 | Emergency (ER) | payer SELFPAY ==
[2025-03-31 16:44] VITALS: BP 140/86; PULSE 94; RESP 18; TEMP 37.1; O2SAT 99; BMI 36.8
--- NOTE | 2025-03-31 17:05 | DI.RAD.S_ITS ---
PROCEDURE: XR CHEST 1V INDICATIONS: Chest Pain TECHNIQUE: One view of the chest was acquired. COMPARISON: [facility], , XR CHEST 2V, 05/07/2020, 11:26. [facility], , CHEST 2 VIEW, 04/02/2017, 10:28. FINDINGS: Surgical changes and devices: None. Lungs and pleura: Lungs are clear. No pleural effusions or pneumothorax. Mediastinum: Mediastinal contours appear normal. Heart size is normal. Bones and chest wall: No suspicious bony lesions. Overlying soft tissues appear unremarkable. IMPRESSION: No acute cardiopulmonary abnormality is seen. Dictated by: Johnny Berrios M.D. on 03/31/2025 at 17:34 Approved by: Johnny Berrios M.D. on 03/31/2025 at 17:34
--- NOTE | 2025-03-31 17:13 | EKG_ITS ---
[address] [address] Test Date: 2025-03-31 Pat Name: Priscilla Piña Department: [facility] Room: Gender: Female Picker Operator: REBECCA : 1985 Requested By: Order Number: [id number] Reading MD: Harish Prescott Measurements Intervals [place] Rate: 83 P: 36 FL: 164 QRS: 17 QRSD: 86 T: 23 QT: 386 QTc: 453 Interpretive Statements Normal sinus rhythm with sinus arrhythmia Electronically Signed On 03-31-2025 18:46:56 PDT by Harish Prescott
--- NOTE | 2025-03-31 17:19 | ED.CHESTPAIN ---
HPI - Chest Pain General Chief Complaint: Chest Pain Stated Complaint: Chest and Back tightness SOB Time Seen by Provider: 03/31/25 17:14 Source: patient, RN notes reviewed and old records reviewed Mode of arrival: Ambulatory Limitations: no limitations Limitations: no limitations History of Present Illness HPI narrative: 39-year-old female with no reported medical issues with complaint of chest tightness and a sensation of shortness of breath intermittently. She states she had an episode yesterday where she felt very short of breath has a pounding heart rate feel like she is maybe having a panic attack last 5-10 minutes and then resolved. She is she has had 1 prior anxiety in the tach which was much more severe. She states she has not noted for the past 2 weeks she has has a little bit of neck discomfort and notes that it radiates from the left side of her neck down to her left upper chest just under the clavicle region and into the midthoracic region. She states feels tight, it is worse with movement deep respiration. States she just can not take a full breath but states it is not really painful. Denies any fevers or chills. No cold cough or congestion symptoms. No nausea or vomiting. No issues with bowel movements or urination. No new swelling in extremities. States she felt a little tingling in her back last night when symptoms are bothering her. She states exertion does not seem to worsen her symptoms. She notes she has a about a year and a half . No other medical issues reported, prior surgeries include wisdom teeth extraction and LEEP procedure. No known drug allergies. Prior tobacco use, no regular alcohol, no recreational drugs. No long distance travel, no estrogen. No known blood clots for herself. States her mom is on an anticoagulant for her heart but does not know the exact nature of her medical issue. Denies any other cardiac, vascular embolic history for the rest of her family. Related Data Home Medications ?Medication ?Instructions ?Recorded ?Confirmed vitamin-ferrous sulfate tab PO 06/25/23 10/07/24 27 mg iron-folic acid 0.8 mg tablet Allergies Allergy/AdvReac Type Severity Reaction Status Date / Time No Known Drug Allergies Allergy Verified 10/07/24 07:37 Review of Systems Review of Systems ROS Unobtainable: All systems reviewed & are unremarkable except as noted in HPI and below Patient History Medical History macrosomia History of induced hypertension Vaginal delivery Migraine without aura HGSIL (high grade squamous intraepithelial lesion) on Pap smear of cervix Discharge from nipple Bloating symptom Bloody stools Abdominal pain Chlamydia (~2017) Surgical History [place] teeth extracted H/O LEEP Family History Grandmother Cancer Breast cancer Mother Diabetes mellitus Hypertension Asthma Heart disease Father Prostatitis Social History marital status: number of children: 1 household members: spouse and children lives independently: Yes caregiver/support person: Yes housing: house pets and animals: Yes (1 dog) education level: college (some college) 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) current 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 exposures/hazards: No special garrett needs: No travel history: over 6 months ago seatbelt use: always water heater temp set < 120 deg: Yes working smoke detector in home: Yes fire extinguisher in home: Yes carbon monox detector in home: Yes firearms in home: Yes firearms unloaded and locked: Yes do you feel safe at home: Yes Smoking Status: Never smoker second hand exposure: No alcohol intake: former (0-5/week when not ) substance use type: does not use during the past year weight has: increased > 10 lbs well-balanced diet: daily or most days daily servings fruits/ve-4 caffeine: No (quit due to ) Type(s) of exercise: none and aerobic frequency: 3-4 times per week Smoking Status: Never smoker alcohol intake frequency: a few times a week Exam Narrative Exam Narrative: GENERAL: Alert and oriented x three, well-appearing female in mild distress HEENT: Head normocephalic, atraumatic, EOMI, pupils reactive, face symmetric, moist mucous membranes NECK: Supple, full range of motion, no vertebral tenderness cervical or thoracic spine CARDIOVASCULAR: Regular rate and rhythm without murmurs, rubs or gallops. Nontender. No edema bilateral lower extremities. RESPIRATORY: Breath sounds equal bilaterally, no wheezes rales or rhonchi. No tachypnea or accessory muscle use. ABDOMEN: Soft, nontender. Normoactive bowel sounds all 4 quadrants. No guarding or rebound, rigidity, no mass : No CVA tenderness EXTREMITIES: Normal range of motion, no clubbing or edema. Neurovascularly intact NEUROLOGICAL: Cranial nerves II through XII grossly intact. Moving all extremities SKIN: Warm, dry, no petechiae, no rashes or lesions. Initial Vital Signs Initial Vital Signs: Vital Signs Temperature 98.8 F 03/31/25 16:44 Pulse Rate 94 H 03/31/25 16:44 Respiratory Rate 18 03/31/25 16:44 Blood Pressure 140/86 03/31/25 16:44 Pulse Oximetry 99 03/31/25 16:44 Oxygen Delivery Method Room Air 03/31/25 16:44 Scores HEART Score Heart Score history: Slightly Suspicious Heart Score EKG: Normal Heart Score Age: < 45 years old Heart Score risk factors: 1-2 risk factors (mom on thinner for cardiac problem) Course Orders Ordered: ED Orders 03/31/25 16:55 Complete Blood Count AUTO DIFF Stat Comprehensive Metabolic Panel Stat D Dimer Stat Lipase Stat Magnesium Stat NT-proBNP (BNP-Adult 18+) Stat PTT Partial Thromboplastin Louis Stat Prothrombin Time INR Stat Troponin & CK Cardiac Panel Stat 03/31/25 17:05 XR chest 1V Stat EKG-12 Lead Stat 03/31/25 19:06 EKG-12 Lead Stat 03/31/25 19:07 Trop I [Troponin I] Stat Discontinued Medications Aspirin (Aspirin 81 Mg Chew Tab) 324 mg PO NOW ONE Stop: 03/31/25 17:06 Last Admin: 03/31/25 17:30 Dose: Not Given Documented By: DIONISIO Vital Signs Vital signs: Vital Signs - 8 hr 03/31/25 16:44 03/31/25 20:23 Temperature 98.8 F Pulse Rate 94 H 82 Respiratory Rate 18 18 Blood Pressure 140/86 116/71 Pulse Oximetry 99 99 Oxygen Delivery Method Room Air Room Air MDM - Chest Pain Lab Data 03/31/25 16:55 03/31/25 16:55 Labs: Lab Results 03/31/25 03/31/25 Range/Units 16:55 19:07 WBC 9.3 (4.5-11.0) X10^3/uL RBC 4.74 (4.0-5.2) X10^6/uL Hgb 14.4 (12.0-16.0) g/dL Hct 41.7 (36-46) % MCV 88.0 (80-100) fL MCH 30.5 (26-34) PG MCHC 34.7 (30-36) % RDW 12.5 (11.6-14.8) % Plt Count 285 (150-400) X10^3/uL Neut % (Auto) 53.9 (50-75) % Lymph % (Auto) 35.1 (25-40) % [place] % (Auto) 8.1 (3-14) % Eos % (Auto) 2.1 (2-4) % Baso % (Auto) 0.8 (0-2) % Neut # (Auto) 5000 (4549-8472) /uL Lymph # (Auto) 3300 (3227-1686) /uL [place] # (Auto) 700 (0-900) /uL Eos # (Auto) 200 (0-450) /uL Baso # (Auto) 100 (0-100) /uL PT 11.9 (9.4-12.5) SECONDS INR 1.1 (0.9-1.3) APTT 34 (25.1-36.5) SECONDS D-Dimer < 215 (<500) ng/ml Sodium 138 (137-145) mmol/L Potassium 3.9 (3.4-5.1) mmol/L Chloride 105 (98-107) mmol/L Carbon Dioxide 22 (22-32) mmol/L BUN 20 H (7-17) mg/dL Creatinine 0.82 (0.52-1.04) mg/dL Estimated GFR > 60 (>60) mL/min BUN/Creatinine Ratio 24.4 H (6-22) Glucose 96 (70-99) mg/dL Calcium 9.2 (8.4-10.2) mg/dL Magnesium 2.0 (1.6-2.3) mg/dL Total Bilirubin 0.8 (0.2-1.3) mg/dL AST 29 (14-36) IU/L ALT 23 (<35) IU/L Alkaline Phosphatase 56 (38-126) U/L Total Creatine Kinase 67 (30-135) U/L Troponin I < 0.012 < 0.012 (0.01-0.034) ng/mL NT-Pro-B Natriuret Pep 37 (<125) pg/mL Total Protein 8.7 H (6.3-8.2) g/dL Albumin 4.8 (3.5-5.0) g/dL Globulin 3.9 (1.7-4.1) g/dL Albumin/Globulin Ratio 1.2 (1.0-2.8) Lipase 93 (23-300) U/L ECG Data Attestation: I personally reviewed and interpreted this ECG as follows: Prior ECG tracings: not available for review Interpretation: Sinus rhythm with sinus arrhythmia rate 83 ND 164 QRS 86 QTC [address]-elevation or depression. No prior for comparison. Repeat EKG shows sinus rhythm at 79 ND 156 QRS 86 QTC of 463, no acute ST elevation or depression. MDM Narrative Medical decision making narrative: EKG shows sinus rhythm with sinus arrhythmia. Lab show normal white count, hemoglobin and platelets, PT, INR normal, D-dimer is negative. Chemistries are overall appropriate BUN 20 creatinine 0.82 glucose is 96 LFTs are negative, troponins less than 0.012 with a BNP of 37. Repeat troponin is negative less than 0.012 Chest x-ray shows no acute cardiopulmonary abnormality. Discussed findings with the patient, plan for follow up as needed. Discharge Plan Departure Patient Disposition: Home Clinical Impression: Atypical chest pain Instructions: DI for Atypical Chest Pain Activity Restrictions/Additional Instructions: Follow up with your physician as needed. You can take ibuprofen and/or acetaminophen as needed for pain. Please return if you develop new fevers, new or worsening chest pain, increasing shortness of breath, coughing up blood, any new swelling of your extremities, lightheadedness or passing out, persistent vomiting or other new or concerning changes. Prescriptions: No Action vit-ferrous sulfat-FA 27 mg iron- 0.8 mg tablet PO Referrals: Mary Kay Mayorga DO [Primary Care Provider, Family Practice] Stand Alone Forms: Patient Portal/API
[2025-03-31 17:21] LABS: Add Manual Diff / Slide Review NO; Hematocrit 41.7 % (36-46); Hemoglobin 14.4 g/dL (12.0-16.0); INR 1.1 (0.9-1.3); Lymphocytes Absolute Auto 3300 /uL (1100-4500); Mean Corpuscular HGB Conc 34.7 % (30-36); Mean Corpuscular Hemoglobin 30.5 PG (26-34); Mean Corpuscular Volume 88.0 fL (80-100); Platelet Count 285 X10^3/uL (150-400); Prothrombin Time 11.9 SECONDS (9.4-12.5)
[2025-03-31 17:24] LABS: PTT Partial Thromboplastin Tim 34 SECONDS (25.1-36.5)
[2025-03-31 17:26] LABS: Alanine Aminotransferase 23 IU/L (<35); Albumin 4.8 g/dL (3.5-5.0); Albumin Globulin Ratio 1.2 (1.0-2.8); Alkaline Phosphatase 56 U/L (38-126); Blood Urea Nitrogen 20 mg/dL (7-17); Calcium 9.2 mg/dL (8.4-10.2); Carbon Dioxide 22 mmol/L (22-32); Chloride 105 mmol/L (98-107); Creatine Kinase 67 U/L (30-135); Estimated Glomerular Filt Rate > 60 mL/min (>60); Globulin 3.9 g/dL (1.7-4.1); Glucose 96 mg/dL (70-99); HEMOLYSIS 21 (0-50); Lipase 93 U/L (23-300); Magnesium 2.0 mg/dL (1.6-2.3); Potassium 3.9 mmol/L (3.4-5.1); Sodium 138 mmol/L (137-145); Total Protein 8.7 g/dL (6.3-8.2)
[2025-03-31 17:38] LABS: NT-proBNP (BNP-Adult 18+) 37 pg/mL (<125); Troponin I < 0.012 ng/mL (0.01-0.034)
--- NOTE | 2025-03-31 19:06 | EKG_ITS ---
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
[2025-03-31 19:44] LABS: Troponin I < 0.012 ng/mL (0.01-0.034)
[2025-03-31 20:23] VITALS: BP 116/71; PULSE 82; RESP 18; O2SAT 99
== END 2025-03-31 20:24 | disposition home or self-care (01) ==
PROVIDERS: Emergency Provider Emergency Medicine; PCP Family Medicine
DX: R07.89 Other chest pain (principal); R06.02 Shortness of breath
CPT/HCPCS: 36415; 71045; 80053; 82550; 83690; 83735; 83880; 84484; 85025; 85379; 85610; 85730; 93005; 99283; 99284

== ENCOUNTER 2025-04-07 14:43 | Emergency (ER) | payer BC, SELFPAY ==
[2025-04-07 14:50] VITALS: BP 168/92; PULSE 89; RESP 16; TEMP 36.4; O2SAT 100; BMI 36.8
--- NOTE | 2025-04-07 14:56 | DI.RAD.S_ITS ---
PROCEDURE: XR CHEST 1V INDICATIONS: Chest Pain TECHNIQUE: One view of the chest was acquired. COMPARISON: [facility], CR, XR CHEST 1V, 03/31/2025, 17:12. FINDINGS: Surgical changes and devices: None. Lungs and pleura: Lungs are clear. No pleural effusions or pneumothorax. Mediastinum: Mediastinal contours appear normal. Heart size is normal. Bones and chest wall: No suspicious bony lesions. Overlying soft tissues appear unremarkable. IMPRESSION: No acute cardiopulmonary abnormality is seen. Approved by: Chapo Archer M.D. on 04/07/2025 at 15:46
--- NOTE | 2025-04-07 14:56 | EKG_ITS ---
[address] [address] Test Date: 2025-04-07 Pat Name: Priscilla Piña Department: 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
[2025-04-07 15:09] LABS: Add Manual Diff / Slide Review NO; Hematocrit 42.4 % (36-46); Hemoglobin 14.4 g/dL (12.0-16.0); Lymphocytes Absolute Auto 3900 /uL (1100-4500); Mean Corpuscular HGB Conc 34.0 % (30-36); Mean Corpuscular Hemoglobin 30.2 PG (26-34); Mean Corpuscular Volume 88.6 fL (80-100); Platelet Count 275 X10^3/uL (150-400)
[2025-04-07 15:18] LABS: INR 1.0 (0.9-1.3); Prothrombin Time 11.6 SECONDS (9.4-12.5)
[2025-04-07 15:20] LABS: PTT Partial Thromboplastin Tim 35 SECONDS (25.1-36.5)
[2025-04-07 15:21] LABS: Alanine Aminotransferase 24 IU/L (<35); Albumin 4.9 g/dL (3.5-5.0); Albumin Globulin Ratio 1.2 (1.0-2.8); Alkaline Phosphatase 58 U/L (38-126); Blood Urea Nitrogen 15 mg/dL (7-17); Calcium 9.0 mg/dL (8.4-10.2); Carbon Dioxide 25 mmol/L (22-32); Chloride 104 mmol/L (98-107); Creatine Kinase 70 U/L (30-135); Estimated Glomerular Filt Rate > 60 mL/min (>60); Globulin 4.2 g/dL (1.7-4.1); Glucose 124 mg/dL (70-99); Lipase 94 U/L (23-300); Magnesium 1.9 mg/dL (1.6-2.3); Potassium 4.1 mmol/L (3.4-5.1); Sodium 139 mmol/L (137-145); Total Protein 9.1 g/dL (6.3-8.2)
[2025-04-07 15:24] LABS: HEMOLYSIS 51 (0-50)
[2025-04-07 15:33] LABS: NT-proBNP (BNP-Adult 18+) 22 pg/mL (<125); Troponin I < 0.012 ng/mL (0.01-0.034)
[2025-04-07 19:15] VITALS: BP 134/81; PULSE 73; O2SAT 99
[2025-04-07 19:30] VITALS: BP 117/68; PULSE 81; RESP 14; O2SAT 96
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
[2025-04-07 20:00] VITALS: PULSE 85; RESP 16; O2SAT 95
[2025-04-07 20:01] VITALS: BP 113/64; PULSE 83; RESP 15; O2SAT 97
[2025-04-07 20:20] VITALS: BP 109/62; PULSE 72; RESP 13; O2SAT 98
== END 2025-04-07 20:27 | disposition home or self-care (01) ==
PROVIDERS: Emergency Medicine; Emergency Provider Emergency Medicine; PCP Family Medicine
DX: R07.89 Other chest pain (principal); R06.02 Shortness of breath
CPT/HCPCS: 36415; 71045; 80053; 82550; 83690; 83735; 83880; 84484; 85025; 85610; 85730; 93005; 99283; 99284

== ENCOUNTER → 2025-04-11 15:50 | Outpatient (CLI) | payer BC, SELFPAY ==
[2025-04-11 17:14] LABS: Hemoglobin A1C% w Est Avg Glu 5.5 % (4.0-6.0)
[2025-04-13 11:09] LABS: Interpretation Negative (Negative)
== END ==
PROVIDERS: PCP Family Medicine; Referring Provider Family Medicine; Visit Provider Family Medicine
DX: K92.1 Melena (principal); Z87.19 Personal history of other diseases of the digestive system; R73.09 Other abnormal glucose; Z86.19 Personal history of other infectious and parasitic diseases
CPT/HCPCS: 36415; 83013; 83036